=== PATIENT | female | born 1970 | race Hispanic/Latino ===

== ENCOUNTER 2017-12-12 13:41 | Emergency (ER) | payer MEDICAID ==
[~2017-12-12] VITALS: Ht 154.9 cm; Wt 90.7 kg
--- NOTE | ~2017-12-12 | EKG ---
[facility] [address] [facility], [place] [address] Draft EK completed, results pending confirmation PATIENT NAME: STANISLAW VELAZQUEZ Electrocardiogram DATE OF : 74 PHYSICIAN: PRELIMINARY REPORT #: [id number] REPORT IS CONFIDENTIAL AND NOT TO BE RELEASED WITHOUT AUTHORIZATION
[2017-12-12] MEDS ORDERED: K-TAB ER20 MEQ PO (17:27)
--- NOTE | 2017-12-14 20:46 | EKG ---
[facility] [address] [facility] [place], [place] [address] \T\ T wave abnormality, consider inferior ischemia Abnormal ECG No previous ECGs available Confirmed by YEIMI PANDA MD ([id number] on 12/14/2017 8:46:31 PM Electronically Signed By: YEIMI PANDA MD 12/14/17 2046 PATIENT NAME: LORENZANA,HARDY MOSLEY Electrocardiogram DATE OF : 74 PHYSICIAN: YEIMI PANDA MD REPORT #: [id number] REPORT IS CONFIDENTIAL AND NOT TO BE RELEASED WITHOUT AUTHORIZATION
== END 2017-12-12 17:57 | disposition home or self-care (01) ==
LOC: ED 13:41
DX: R00.0 Tachycardia, unspecified (principal); E87.6 Hypokalemia; E86.0 Dehydration; Z88.0 Allergy status to penicillin
CPT/HCPCS: 71045; 80053; 81001; 84484; 84703; 85025; 85379; 93005; 93010; 96361; 96374; 96375; 99285; J2060; J3475; J7030